=== PATIENT | male | born 1935 | race Caucasian/White ===

== ENCOUNTER → 2020-09-20 | Outpatient (CLI) | payer OTHER, BC ==
[~2020-09-20] MED LIST: ARTIFICIAL TEA1 EACH OPHTHALMIC; CLOBETASOL PROP15 GM TOP; DOXYCYCLINE HY100 M3 PO; ERYTHROMYCIN E3.5 G3 OPHTHALMIC; EUCERIN CREME57 GM TOP; FISH OIL 1,0001 EAC9 PO; FLOMAX0.4 MG PO; GLUMETZA500 PO; HUMALOG KW200 UNIT/1 SUBQ; HYDROCHLOROTHIA25 M1 PO; HYDROCODON-ACE1 EAC7 PO; KEFLEX250 MG PO; LISINOPRIL10 MG PO; NIACIN 500 MG500 M1 PO; NORVASC5 MG PO; OCUVITE ADULT1 EAC2 PO; OPTIMAL D31250 MCG PO; PREDNISONE 10 M10 MG PO; PROSCAR 5MG TABL5 M1 PO; SLOW FE142 MG PO; TYLENOL EXTRA500 MG PO; ZOFRAN ODT4 MG DISSOLVE
== END ==
LOC: LAB 10:59
PROVIDERS: Student in an Organized Health Care Education/Training Program; ATTEND Otolaryngology Plastic Surgery within the Head & Neck
DX: Z20.822 Contact with and (suspected) exposure to COVID-19 (principal)

== ENCOUNTER 2020-09-21 08:08 | Observation (INO) | payer OTHER, BC ==
[2020-09-21] VITALS (8 sets, daily range): BP systolic 129–177; BP diastolic 69–83
[~2020-09-21] VITALS: Ht 172.7 cm; Wt 84.8 kg
[~2020-09-21 08:08] MED LIST changes: -HYDROCODON-ACE1 EAC7 PO; -KEFLEX250 MG PO; -NORVASC5 MG PO; -ZOFRAN ODT4 MG DISSOLVE
[2020-09-21 08:56] LABS: ABSOLUTE NEUTROPHILS 5.1 thou/uL (1.4-8.2); BASOPHILS 0.8 % (0.0-2.0); EOSINOPHILS 1.9 % (0.0-3.0); HEMATOCRIT 35.2 % (42.0-52.0); HEMOGLOBIN 12.2 gm/dL (14.0-18.0); LYMPHOCYTES 16.9 % (24.0-44.0); MCH 30.6 pg (26.0-34.0); MCHC 34.7 g/dL (28.0-37.0); MCV 88.3 fL (80.0-100.0); MONOCYTES 9.9 % (1.0-8.0); PLATELET COUNT 246 thou/uL (150-400); POLYS 70.5 % (36.0-66.0); RBC 3.99 mil/uL (4.50-6.00); RDW 13.8 % (10.5-14.5); WBC 7.2 thou/uL (4.0-11.0)
[2020-09-21 09:02] LABS: CALCIUM 9.5 mg/dL (8.5-10.1); CREATININE 1.4 mg/dL (0.7-1.3); POTASSIUM 4.8 mmol/L (3.5-5.1)
[2020-09-21 09:08] LABS: ALBUMIN 3.2 g/dL (3.4-5.0); TOTAL BILIRUBIN 1.2 mg/dL (0.2-1.0); TOTAL PROTEIN 6.2 g/dL (6.4-8.2)
--- NOTE | 2020-09-21 12:42 | EKG ---
[place] [address] [facility] [employer] [place] [address] ELECTROCARDIOGRAM REPORT Name: WARRENREGGIE Cardenas Room #: REG [facility]#: [id number] Admission: 09/21/20 Attend Phys: Nuno Garcias MD Discharge: Date of : 31 Report #: [id number] [facility] Test Date: 2020-09-21 Test Time: 09:06:00 Pat Name: REGGIE KELLEY Department: Room: Gender: [employer] Supervisor: MACHELLE : 1935 Requested By: Romy Mae Order Number: [id number] MD: Yasmani Tatum Measurements Intervals [place] Rate: 71 P: -17 CA: 261 QRS: 9 QRSD: 80 T: 31 QT: 377 QTc: 410 Interpretive Statements Sinus rhythm Prolonged CA interval Anteroseptal infarct, old No previous ECG available for comparison Electronically Signed On 09-21-2020 12:42:32 CDT by Yasmani Tatum [email or web address] <ELECTRONICALLY SIGNED> By: Yasmani Tatum MD, [facility] 09/21/20 1242 [id number] 5 Yasmani Tatum MD, FACC /EPI
[2020-09-21] MEDS ORDERED: KEFLEX250 MG PO (16:15)
[2020-09-21] MEDS ORDERED: ZOFRAN ODT4 MG DISSOLVE (16:15)
[2020-09-21] MEDS ORDERED: HYDROCODON-ACE1 EAC7 PO (16:15)
--- NOTE | 2020-09-21 18:21 | NUR ---
Pt transferred from PACU. Pt awake but forgetful. Dressing c/d/i. SHANT drain connected to suction. Pain minimal at this moment. Hospitalist doctor consulted. Possible admitted for observation overnight and likely to go home tomorrow. Spouse at bedside. Discharge prescription in chart. Call light within reach. Fall precautions in place. Will continue to monitor.
--- NOTE | 2020-09-21 19:52 | NUR ---
ASSESSMENT COMPLETED. PT ALERT TO SELF , TIME AND SITUATION. DID NOT KNOW PLACE. HE SAID HE WANTS TO GET UP BUT I ADVISED HIM THAT ITS TOO SOON AFTER SURGERY AND HE WAS AGREABLE. ALSO TOLD ME THAT HE HAS BEEN WEAK AT THE FACILITY USING W/CHAIR AND FALLING. PT DENIES PAIN AT THIS TIME. SCDS APPLIED. IVF INFUSING AND FIRST BAG OF IV ABT GIVEN. PT IS AFEBRILE. PLACED ON /NC FOR COMFORT. R FOREHEAD WITH STERISTRIPS AND OPSITE IN PLACE. KEYLA DRAIN WITH SOME SMALL AMT OF BLOODY DRAINAGE, HOOKED TO LIS SUCTION.COYNE TO D/D WITH DARK YELLOW URINE IN BAG. NO FURTHER CONCERNS AT THIS TIME. WILL CONTINUE WITH POC TILL EOS.
[2020-09-22 03:54] VITALS: BP 168/73
[2020-09-22 05:16] LABS: ABSOLUTE NEUTROPHILS 6.2 thou/uL (1.4-8.2); HEMATOCRIT 32.8 % (42.0-52.0); HEMOGLOBIN 11.3 gm/dL (14.0-18.0); LYMPHOCYTES 7.1 % (24.0-44.0); MCH 30.5 pg (26.0-34.0); MCHC 34.4 g/dL (28.0-37.0); MCV 88.7 fL (80.0-100.0); PLATELET COUNT 237 thou/uL (150-400); POLYS 86.9 % (36.0-66.0); RDW 13.6 % (10.5-14.5); WBC 7.1 thou/uL (4.0-11.0)
[2020-09-22 05:27] LABS: CALCIUM 8.5 mg/dL (8.5-10.1); CREATININE 1.1 mg/dL (0.7-1.3); MAGNESIUM 1.5 mg/dL (1.8-2.4)
[2020-09-22 07:35] VITALS: BP 147/68
--- NOTE | 2020-09-22 09:26 | NUR ---
ASSESSMENT: CM REVIEWED CHART AND SPOKE WITH PT AND HIS DAUGHTER CHELSIE. PT IS FROM [facility] AND IS S/P RECONSTRUCTIONS OF MOH'S DEFECT RIGHT FOREHEAD. PATIENT NORMALLY USES A WHEELCHAIR AND CAN AT TIMES USE A WALKER IN HIS APT. PLANS ARE FOR PATIENT TO RETURN TO HIS AL TODAY. CM REACHED OUT TO [facility] ADMISSIONS AND SPOKE WITH LIASON AND NOTIFIED HER PT WILL LIKELY RETURN TODAY AND THAT PATIENTS DAUGHTER REQUEST TO TRANSPORT HIM IF HE DISCHARGES. CM FAXED CLINICAL TO THEM AT [phone]. CM WILL AWAIT FURTHER INPUT FROM PHYSICIAN IF HE CAN DISCHARGE TODAY. CM WILL CONTINUE TO FOLLOW TO ASSIST NEEDED.
--- NOTE | 2020-09-22 10:06 | O ---
[address] [place] [address] OPERATIVE REPORT Name: REGGIE KELLEY Room #: 446-P [facility]#: [id number] Admission: 09/21/20 Attend Phys: Nuno Garcias MD Discharge: Date of : 31 Report #: [id number] THIS REPORT FOR: cc: LORELEI GUILLORY MD, HEATHER L. MD Walton, Mark S. MD ~ DATE OF SERVICE: 09/21/2020 SURGEON: Nuno Garcias MD PREOPERATIVE DIAGNOSES: 1. Mohs defect, right forehead, 6 x 6 cm. 2. Squamous cell carcinoma, right forehead. 3. Brow ptosis. 4. Facial nerve paralysis, frontal branch facial nerve, right side. POSTOPERATIVE DIAGNOSES: 1. Mohs defect, right forehead, 6 x 6 cm. 2. Squamous cell carcinoma, right forehead. 3. Brow ptosis. 4. Facial nerve paralysis, frontal branch facial nerve, right side. OPERATIONS PERFORMED: 1. Forehead V-Y island flap advancement. 2. Fasciocutaneous rotation flap reconstruction, right cheek to right forehead. 3. Right unilateral browplasty. 4. [place] lymph node biopsy. INDICATIONS: The patient is an 85-year-old gentleman presenting with a squamous cell carcinoma of the right forehead. He was referred by his Mohs surgeon, Dr. Sam with a 6 x 6 cm lesion in the right forehead in the right temporal area. This had perineural and lymphovascular invasion on skin, but margins were clear. The frontal branch of the facial nerve was sacrificed resulting in brow ptosis. Recommendations were made for reconstruction. A metastatic workup was done with negative CT scan. Plan and recommendations were made for reconstruction. DESCRIPTION OF PROCEDURE: The patient brought to the operating room and placed supine on the operating table. After adequate general anesthesia was achieved via endotracheal intubation, he was turned 180 degrees with the defect forward. Prior to coming to surgery, the patient was in nuclear medicine for technetium injection in anticipation of sentinel node biopsy, was kept for over an hour in nuclear medicine and no lymph nodes could be seen on uptake. Time for surgery came and he was transferred back to the preop. Patient before prepping was then [facility] [address] [place] [address] OPERATIVE REPORT Name: REGGIE KELLEY Ronald Room #: 446-P [facility]..#: [id number] Admission: 09/21/20 Attend Phys: Nuno Garcias MD Discharge: Date of : 31 Report #: [id number] mapped with a gamma probe, again I had almost no take up in the parotid area, which I would expect as the area of drainage. The patient was then prepped with Betadine and draped in a sterile fashion. Corneal protector was placed in the right eye. The left eye was dressed prepped with an Op-Site. As a separate part of the procedure, the SDNsquare nerve integrity monitor was applied to the right face for continuous intraoperative monitoring of the facial nerve. Needle electrodes were placed in orbicularis surendra and orbicularis oculi muscles. Ground electrodes were placed in the soft tissue overlying the sternum and contralateral shoulder. Electrode resistance and impedance was measured and found to be acceptable. Threshold and stimulus intensity parameters were set and the patient was monitored for the entirety of the case of approximately 2 hours in order to locate and protect the facial nerve. The procedure began with a mapping and evaluation of the defect. With the browplasty necessary and pulling the brow up it was elected to proceed with flap reconstruction of this large defect. This required 2 flaps. A central forehead V-Y advancement flap followed by a musculocutaneous rotation flap reconstruction based on the temporal artery midface flap and zygomatic flap from the right cheek. These were then mapped out and injected with 1% Xylocaine with 1:100,000 epinephrine. Before beginning the reconstruction, attention was turned to the sentinel node biopsy. Again, mapping was undertaken with the gamma probe sterilely. Again, there was almost no uptake. I was able to get some uptake from the inferior parotid area, which is where I would expect a sentinel node. An incision was made over the apex of this uptake after injecting with 1% Xylocaine with 1:100,000 epinephrine. Dissection was then made down into the parotid gland. The retromandibular vein was then identified and the lymph nodes were searched along this area. I had some uptake in the parotid 10-second count of 24 only, this periparotid tissue was then removed as I could not identify a specific lymph node. The 10-second count post-removal was 0 in the bed. Hemostasis was assured with bipolar cautery. The wound was then closed with closing the parotid with interrupted 4-0 Vicryl, 4-0 Vicryl deep dermal sutures were placed, 6-0 nylon on skin. Mastisol and Steri-Strips were applied with an OpSite. No drain was used. Attention was then turned to the forehead. The V-Y island forehead advancement was then created medially and extending laterally. Care was taken to preserve the supraorbital and the supratrochlear branches of the arteries and veins. Some undermining was done on the periosteum inferiorly to allow for advancement of this flap. I was able to get a good centimeter and a half to 2 cm advancement on this. The rotation flap was then designed in the right cheek and rotated superiorly based on the superficial temporal artery and zygoma flap and rotate this into the defect. This was designed and incised with a #15 blade. [facility] [address] [place] [address] OPERATIVE REPORT Name: REGGIE KELLEY [facility]: [id number] Admission: 09/21/20 Attend Phys: Nuno Garcias MD Discharge: Date of : 31 Report #: [id number] The flap was then rotated into position and the wounds were then closed with interrupted 4-0 Vicryl deep dermal sutures and 5-0 nylon on skin. After this was rotated into the defect it then designed to fit exactly into the round defect from the Mohs surgery. The free edge of this in the midline was then able to be advanced to the advancement flap medially and closed. I was able to close the defect with minimal effort. Prior to doing this however a browplasty was done using 3-0 Mersilene extending the orbicularis surendra muscle superiorly and suturing this to the underlying periosteum of the scalp. Once this was elevated, this did decrease the size of the defect somewhat and I was able to trim some of the skin of the V-Y advancement flap to accommodate. All closure was done with 4-0 Vicryl deep dermal and 5-0 nylon. Mastisol and Steri-Strips were then applied followed by an Op-Site. Prior to closure, a 10-Marshall[place] Jose drain was placed through a separate stab incision up in the right scalp area, sutured in place with 2-0 silk and connected to bulb suction. The patient was then returned to anesthesia, awake without difficulty, returned to recovery in good condition. Sponge and needle counts were correct. There were no complications. The blood loss was about 75 mL. He will be watched overnight for monitoring. Presuming he does well, will be discharged home with plans to follow with me in 1 week for suture removal. Written and verbal discharge instructions and emergency precautions have been given to his and to his care home. DISCHARGE MEDICATIONS: Will include cephalexin 500 mg q.i.d. for 10 days, Phenergan suppository 25 mg 1 per rectum q. 4-6 hours p.r.n., hydrocodone-acetaminophen 7.5/325 one to two q. 4-6 hours p.r.n. He is instructed on light activity and a soft diet. <ELECTRONICALLY SIGNED> By: Nuno Garcias MD 09/22/20 1006 [id number] Nuno Garcias MD /nt
[2020-09-22 10:53] VITALS: BP 147/68
[2020-09-22] MEDS ORDERED: NORVASC5 MG PO (12:30)
--- NOTE | 2020-09-22 13:28 | NUR ---
ON-GOING ASSESSMENT: CM SPOKE WITH BEDSIDE RN, DR SNIDER STATING TO DISCHARGE THE PATIENT BACK TO [facility] TODAY. DR. STOKES ROUNDED AND REQUESTING THAT PATIENT RECEIVE IV FLUIDS PRIOR TO DISCHARGE DUE TO SODIUM LEVEL. HOME HEALTH WAS ORDERED. CM SPOKE WITH PATIENT AND HIS DAUGHTER AND THEY HAVE NO PREFERENCE. CM SPOKE WITH [facility] WHO REPORTS THEY USUALLY USE [facility], PT AND DAUGHTER OK WITH THAT. CM FAXED REFERRAL TO [facility] AND CONFIRMED THEY CAN ACCPT PATIENT. CM FAXED DISCHARGE ORDERS AND CONFIRMED THEY RECEIVED IT. CM ALSO FAXED DISCHARGE ORDERS TO [facility] AND SPOKE WITH [facility] AND NOTIFIED THEM OF DISCHAREG TODAY. CM CONFIRMED THEY RECEIVED DISCHARGE ORDERS. CM LEFT VM WITH ADMISSIONS THAT PATIENT IS RECEIVING IV FLUIDS AND THEN DAUGHTER WILL PROVIDE TRANSPORTATION BACK TO FACILITY. [facility] IS AWARE PTS DAUGHTER CHELSIE IS PROVIDING TRANSPORTATION. CHART COPY WAS MADE AND CM NOTIFIED PTS DAUGHTER SHE WILL NEED TO PROVIDE THIS TO THE FACILITY. CM PROVIDED BEDSIDE RN THE NUMBER FOR REPORT. PT AND HIS DAUGHTER REPORT NO FURTHER NEEDS FROM AT THIS TIME.
--- NOTE | 2020-09-22 15:15 | NUR ---
PT ASSESSED AT START OF SHIFT. DR. SNIDER IN THIS AM TO FINISH DISCHARGE INSTRUCTIONS. IV MAGNESIUM BOLUS GIVEN PER ORDERS. SHANT DRAIN DC'D W/ GAUZE APPLIED. COYNE DC'D PRIOR TO DISCHARGE. DAUGHTER TRANSPORTING PT PER HER REQUEST SHE WANTED SOME VISITING TIME W/ PT AT THE HOSPITAL. REPORT GIVEN TO NURSE AT FACILITY.
== END 2020-09-22 15:15 | disposition home health service (06) ==
LOC: OR 08:08 → TBA 15:46 → OR 15:50 → 4S 17:10 → OR 17:11 → 4S 09-22 15:15
PROVIDERS: Anesthesiology; ADMIT Otolaryngology Plastic Surgery within the Head & Neck; ATTEND Otolaryngology Plastic Surgery within the Head & Neck
DX: M95.2 Other acquired deformity of head (principal); C44.329 Squamous cell carcinoma of skin of other parts of face; H57.811 Brow ptosis, right; G51.0 Bell's palsy; I10 Essential (primary) hypertension; E11.40 Type 2 diabetes mellitus with diabetic neuropathy, unspecified; M19.90 Unspecified osteoarthritis, unspecified site; Z86.73 Personal history of transient ischemic attack (TIA), and cerebral infarction without residual deficits; Z79.4 Long term (current) use of insulin; Z79.899 Other long term (current) drug therapy
CPT/HCPCS: 50010; 50101; 50386; 50417; 51412; 52190; 52220; 52225; 56526; 56527; 56528; 56760; 57006; 62110; 62900; 70005